=== PATIENT | female | born 1990 | race Caucasian/White ===

== ENCOUNTER 2017-09-04 16:21 | Emergency (ER) | payer OTHER ==
[~2017-09-04] VITALS: Ht 154.9 cm; Wt 75.0 kg
[~2017-09-04 16:21] MED LIST: METH750T2 PO; NAPR-576 PO
[2017-09-04 16:28] VITALS: BP 131/76; PULSE 95; RESP 16; TEMP 98.4; O2SAT 100
[2017-09-04 17:35] VITALS: BP 133/79; PULSE 96; RESP 23; O2SAT 100
[2017-09-04 17:43] VITALS: O2SAT 100
[2017-09-04] MEDS ORDERED: SODIUM CHLORIDE 0.9% FLUSH 10 ML FLUSH IVF PRN (17:45)
--- NOTE | 2017-09-04 17:46 | PD ---
HPI Chief Complaint: Chest Pain Time Seen by Provider: 17:33 Travel History International Travel<30 days: No Contact w/Intl Traveler<30days: No Traveled to known affect area: No History of Present Illness HPI The patient was seen and examined in the presence of the nurse. This patient complains of chest pain. Duration is 2 weeks. It has been occurring every day and lasts all day constantly for many hours. No injury. No pleuritic component. She is not short of breath. No cough or fever or injury. She thought it might be indigestion but is not sure. Location is left lower chest underneath her left breast. Severity is mild to moderate. No alleviating factors. No exacerbating factors. PFSH Past Medical History Diminished Hearing: No Genitourinary: Yes (UTI LAST ONE 5 YRS AGO) Immunizations Current: Yes ?: Not LMP: 09/01/17 : 1 Para: 1 Past Surgical History Section: Yes (X 1) Social History Alcohol Use: Yes (OCCASSIONAL) Tobacco Use: No Substance Use: No Allergies-Medications (Allergen,Severity, Reaction): Coded Allergies: Sulfa (Sulfonamide Antibiotics) (Unverified Allergy, Mild, Hives, 09/04/17) Reported Meds & Prescriptions Reported Meds & Active Scripts Active No Active Prescriptions or Reported Medications Review of Systems General / Constitutional: No: Fever Eyes: No: Visual changes HENT: No: Headaches Cardiovascular: Positive: Chest Pain or Discomfort Respiratory: No: Shortness of Breath Gastrointestinal: No: Abdominal Pain Genitourinary: No: Dysuria Musculoskeletal: No: Pain Skin: No Rash Neurologic: No: Weakness Psychiatric: No: Depression Endocrine: No: Polydipsia Hematologic/Lymphatic: No: Easy Bruising Physical Exam Narrative GENERAL: Well-nourished, well-developed patient in no apparent distress. SKIN: Focused skin assessment reveals no rash and nodules. Skin is Warm and dry. HEAD: Atraumatic. Normocephalic. EYES: Pupils equal and round. No scleral icterus. No injection or drainage. ENT: No nasal bleeding or discharge. Mucous membranes pink and moist. NECK: Trachea midline. No JVD. CARDIOVASCULAR: Regular rate and rhythm. No murmur appreciated. RESPIRATORY: No accessory muscle use. Clear to auscultation. Breath sounds equal bilaterally. GASTROINTESTINAL: Abdomen soft, non-tender, nondistended. Hepatic and splenic margins not palpable. MUSCULOSKELETAL: No obvious deformities. No clubbing. No cyanosis. No edema. No chest wall tenderness NEUROLOGICAL: Awake and alert. No obvious cranial nerve deficits. Motor grossly within normal limits. Normal speech. PSYCHIATRIC: Appropriate mood and affect; insight and judgment normal. Data Data Last Documented VS Vital Signs Date Time Temp Pulse Resp B/P (MAP) Pulse Ox O2 Delivery O2 Flow Rate FiO2 09/04/17 17:35 96 23 133/79 (97) 100 Room Air 09/04/17 16:28 98.4 Orders Orders Electrocardiogram (09/04/17 ) Electrocardiogram (09/04/17 17:39) Basic Metabolic Panel (Bmp) (09/04/17 17:39) Ckmb (Isoenzyme) Profile (09/04/17 17:39) Complete Blood Count With Diff (09/04/17 17:39) D-Dimer (09/04/17 17:39) Prothrombin Time / Inr (Pt) (09/04/17 17:39) Act Partial Throm Time (Ptt) (09/04/17 17:39) Troponin I (09/04/17 17:39) Chest, Single Ap (09/04/17 17:39) Ecg Monitoring (09/04/17 17:39) Iv Access Insert/Monitor (09/04/17 17:39) Oximetry (09/04/17 17:39) Sodium Chloride 0.9% Flush (Ns Flush) (09/04/17 17:45) MDM Medical Decision Making Medical Screen Exam Complete: Yes Emergency Medical Condition: Yes Medical Record Reviewed: Yes Differential Diagnosis Differential diagnosis includes NE, angina, pericarditis, pleurisy, GERD, anxiety. Narrative Course I have reviewed the patient's electronic medical record. IV placed I reviewed the EKG which is normal I reviewed the chest x-ray Extended cardiac monitoring shows sinus rhythm without ectopy or ST elevation CBC Metabolic profile CK Troponin Coagulation studies D-dimer Diagnosis Primary Impression: Chest pain Qualified Codes: R07.9 - Chest pain, unspecified Scripts No Active Prescriptions or Reported Meds Sandor Stephenson MD September 04, 2017 17:46
--- NOTE | 2017-09-04 18:16 | RADRPT ---
EXAM DATE/TIME: 09/04/2017 17:52 [facility] COMPARISON: No previous studies available for comparison. INDICATIONS : Chest pain. MEDICAL HISTORY : None. SURGICAL HISTORY : None. ENCOUNTER: Initial ACUITY: 2 weeks PAIN SCORE: 7/10 LOCATION: Left chest FINDINGS: A single view of the chest demonstrates the lungs to be symmetrically aerated without evidence of mas s, infiltrate or effusion. The cardiomediastinal contours are unremarkable. Osseous structures are intact. CONCLUSION: 1. No acute cardiopulmonary disease. Rasta Sanchez MD on September 04, 2017 at 18:13 Board Certified Radiologist. This report was verified electronically.
[2017-09-04 18:31] LABS: AUTOMATED NEUTROPHIL # 3.6 TH/MM3 (1.8-7.7); BASOPHIL % 0.6 % (0.0-2.0); EOSINOPHIL # 0.1 TH/MM3 (0-0.4); EOSINOPHIL % 0.8 % (0.0-4.0); HEMATOCRIT 39.4 % (35.0-46.0); HEMOGLOBIN 13.6 GM/DL (11.6-15.3); LYMPHOCYTE # 2.6 TH/MM3 (1.0-4.8); MEAN CELL VOLUME 84.6 FL (80.0-100.0); MEAN CORPUSCULAR HEMOGLOBIN 29.2 PG (27.0-34.0); MEAN CORPUSCULAR HGB CONC 34.6 % (32.0-36.0); MEAN PLATELET VOLUME 8.9 FL (7.0-11.0); MONO % 10.5 % (0.0-8.0); MONOCYTE # 0.7 TH/MM3 (0-0.9); NEUT % 51.1 % (16.0-70.0); PLATELET COUNT 281 TH/MM3 (150-450); RED BLOOD COUNT 4.66 MIL/MM3 (4.00-5.30); RED CELL DISTRIBUTION WIDTH 12.9 % (11.6-17.2)
[2017-09-04 18:46] LABS: PROTHROMBIN TIME - PATIENT 10.1 SEC (9.8-11.6)
[2017-09-04 18:48] LABS: D-DIMER 0.2 MG/L FEU (0.00-0.50)
[2017-09-04 19:05] LABS: BICARBONATE 29.2 MEQ/L (21.0-32.0); BLOOD UREA NITROGEN 10 MG/DL (7-18); CHLORIDE 107 MEQ/L (98-107); CREATININE 0.77 MG/DL (0.50-1.00); GLOMERULAR FILTRATION RATE 89 ML/MIN (>89); GLUCOSE,RANDOM 82 MG/DL (74-106); SODIUM (NA) 142 MEQ/L (136-145); TROPONIN I LESS THAN 0.02 NG/ML (0.02-0.05)
--- NOTE | 2017-09-05 09:33 | EKG ---
Date Performed: 09/04/2017 Time Performed: 16:36:07 PTAGE: 27 years EKG: Sinus rhythm NORMAL ECG NO PREVIOUS TRACING DOCTOR: Nan Maki Interpretating Date/Time 09/05/2017 09:32:34
== END 2017-09-04 20:22 | disposition home or self-care (01) ==
LOC: NEPD 16:21
DX: R07.9 Chest pain, unspecified (principal)
CPT/HCPCS: 71045; 80048; 82550; 84484; 85025; 85379; 85610; 85730; 93005; 99285